=== PATIENT | male | born 1950 | race Caucasian/White ===

== ENCOUNTER 2020-07-31 11:27 | Emergency (ER) | payer MEDICARE ==
[2020-07-31 17:11] LABS: BILIRUBIN - TOTAL 0.8 mg/dL (0.2-1.0); BUN/CREAT RATIO (CALC) 19.8 RATIO; CREATININE 0.81 mg/dL (0.67-1.17); GLOBULIN (CALCULATION) 3.4 g/dL; POTASSIUM 4.2 mmol/L (3.5-5.1); TOTAL PROTEIN 7.4 g/dL (6.4-8.2)
[2020-07-31 17:23] LABS: BASOPHIL 0.2 % (0-2); HCT 45.8 % (42.0-52.0); HGB 15.4 g/dl (13.2-18.0); LYMPHOCYTE 19.4 % (15-48); MCH 31.6 pg (25.0-31.0); MCHC 33.6 g/dL (32.0-36.0); MCV 93.9 fL (78.0-100.0); MONOCYTE 8.8 % (0-12); MPV 9.4 fL (6.0-9.5); NEUTROPHIL 70.3 % (41-80); NRBC 0; PLT 200 K/uL (150-400); RBC 4.88 M/uL (4.70-6.00)
== END 2020-07-31 18:34 | disposition home or self-care (01) ==
LOC: FER 11:27
PROVIDERS: Emergency Medicine
DX: K22.2 Esophageal obstruction (principal)
CPT/HCPCS: 36415; 71045; 80053; 85025; J1610